=== PATIENT | female | born 1975 ===

== ENCOUNTER 2017-12-30 10:30 | Inpatient (IN) | payer OTHER ==
[~2017-12-30] VITALS: Ht 165.1 cm; Wt 70.8 kg
[2018-01-08] MEDS ORDERED: MIRALAX17 GM PO (17:31)
[2018-01-08] MEDS ORDERED: NEURONTIN300 MG PO (17:31)
[2018-01-08] MEDS ORDERED: PERCOCET 5-3251 EACH PO (17:31)
== END 2018-01-09 13:57 | disposition home or self-care (01) | DRG 337 ==
LOC: SURH 01-07 10:30 → SURG 01-07 11:23 → O/R 01-07 11:23 → SURH 01-07 13:45 → SURG 01-07 22:46
PROVIDERS: Surgery
PROC: 0DNW4ZZ Release Peritoneum, Percutaneous Endoscopic Approach (ICD-10-PCS; 2018-01-07)
PROC: 0JX83ZZ Transfer Abdomen Subcutaneous Tissue and Fascia, Percutaneous Approach (ICD-10-PCS; 2018-01-07)
PROC: 0WUF4JZ Supplement Abdominal Wall with Synthetic Substitute, Percutaneous Endoscopic Approach (ICD-10-PCS; principal; 2018-01-07 13:45)
DX: K43.0 Incisional hernia with obstruction, without gangrene (principal); K66.0 Peritoneal adhesions (postprocedural) (postinfection)

== ENCOUNTER → 2019-06-16 | Day surgery (SDC) | payer OTHER ==
[~2019-06-16] MED LIST: COLACE100 MG PO; MIRALAX17 GM PO; NEURONTIN300 MG PO; PERCOCET 5-3251 EACH PO; ULTRAM50 MG PO
== END | disposition home or self-care (01) ==
LOC: ADM 06-14 10:15 → CIR.AMB 07:45
DX: D27.1 Benign neoplasm of left ovary (principal); K42.9 Umbilical hernia without obstruction or gangrene; K66.0 Peritoneal adhesions (postprocedural) (postinfection)